=== PATIENT | male | born 1940 | race Caucasian/White ===

== ENCOUNTER → 2016-02-21 | Outpatient (CLI) | payer MEDICARE, MEDICAID ==
[~2016-02-21] MED LIST: ADVAIR 250/501 EA INH; AMIODARONE HCL100 M1 PO; AMIODARONE HCL200 MG PO; AMIODARONE200 MG PO; ASPIR LOW81 MG PO; ASPIRIN81 M1 PO; ATOXIMETIN-B1 CAP PO; B-12-SL1000 MCG SL; BETHANECHOL CHL50 MG PO; CALCIUM 600600 M1 PO; CALCIUM1 CAP PO; CORDARONE200 MG PO; CRESTOR10 M1 PO; CYMBALTA60 MG PO; DILANTIN PO; DILANTIN100 MG PO; FISH OIL1000 MG PO; FLOMAX0.4 MG PO; FOSAMAX PLUS D1 TAB PO; FOSAMAX70 MG PO; ISOSORBIDE MONO30 M1 PO; LIPITOR40 MG PO; LISINOPRIL2.5 MG PO; MEDROL DOSEPAK4 MG PO; METOPROLOL SR25 MG PO; MIRALAX17 GM/DOSE PO; MIRALAX17 GM/PACK PO; MULTIVITAMIN1 TA1 PO; NAMENDA-28 PO; NEXIUM40 MG PO; NITRO-DUR0.4 MG/HR SL; NITROSTAT0.4 MG SL; OMEGA-3 FISH1200 MG PO; PANTOPRAZOLE40 MG PO; PLAVIX75 MG PO; PLETAL50 M1 PO; PRINIVIL2.5 MG PO; PROVENTIL0.09 MG/A1 INH; PROVENTIL0.09 MG/AC IH; RANEXA1000 M1 PO; RANEXA500 MG PO; REGLAN5 MG PO; SEROQUEL25 MG PO; SIMVASTATIN40 MG PO; Synthroid,Lev100 MCG PO; TOPROL XL50 MG PO; VIBRAMYCIN100 MG PO; VICODIN 5/500 505 MG PO; VICODIN ES 7.51 EACH PO; VICODIN ES 7501 TA1 PO; VICODIN ES 7501 TAB PO; VITAMIN B121000 MC2 SL; VITAMIN D1000 IU PO; VOLTAREN 2.5 M2.5 ML OPH; VOLTAREN1% TP; VOLTAREN25 MG PO
== END | disposition home or self-care (01) ==
LOC: LAB 12:24
DX: I69.959 Hemiplegia and hemiparesis following unspecified cerebrovascular disease affecting unspecified side (principal)

== ENCOUNTER → 2016-05-01 | Outpatient (CLI) | payer MEDICARE, MEDICAID | END | disposition home or self-care (01) | LOC: LAB 16:55 | DX: I69.959 Hemiplegia and hemiparesis following unspecified cerebrovascular disease affecting unspecified side (principal) ==

== ENCOUNTER → 2016-07-29 | Outpatient (CLI) | payer MEDICARE, MEDICAID ==
[2016-07-30 07:06] LABS: HEPATITIS B SURFACE AB 006395 Non Reactive (.)
== END | disposition home or self-care (01) ==
LOC: LAB 14:26
PROVIDERS: Internal Medicine
DX: Z11.59 Encounter for screening for other viral diseases (principal); G40.909 Epilepsy, unspecified, not intractable, without status epilepticus; R53.83 Other fatigue

== ENCOUNTER → 2016-11-06 | Outpatient (CLI) | payer MEDICARE, MEDICAID ==
[2016-11-06 10:32] LABS: ALBUMIN 2.7 gm/dl (3.1-4.5); BILIRUBIN, DIRECT 0.1 mg/dL (0.0-0.2); FREE T4 0.91 ng/dl (0.76-1.46); TOTAL PROTEIN 6.3 gm/dL (6.4-8.2)
[2016-11-06 10:36] LABS: VITAMIN D, 25-HYDROXY 53.3 ng/mL (30-100)
[2016-11-06 10:42] LABS: THYROID STIM HORMONE (HS) 0.093 uIU/ml (0.358-4.75)
== END | disposition home or self-care (01) ==
LOC: LAB 08:52
PROVIDERS: Internal Medicine
DX: E78.5 Hyperlipidemia, unspecified (principal); E27.40 Unspecified adrenocortical insufficiency; E03.9 Hypothyroidism, unspecified; D64.9 Anemia, unspecified; E55.9 Vitamin D deficiency, unspecified; R53.1 Weakness; G40.909 Epilepsy, unspecified, not intractable, without status epilepticus

== ENCOUNTER 2016-11-21 05:01 | Emergency (ER) | payer MEDICARE, MEDICAID ==
[~2016-11-21] VITALS: Ht 180.3 cm; Wt 86.2 kg
[2016-11-21] MEDS ORDERED: PERCOCET 5-3251 EACH PO (05:55)
== END 2016-11-21 06:00 | disposition home or self-care (01) ==
LOC: ED 05:01
DX: S20.212A Contusion of left front wall of thorax, initial encounter (principal); N40.0 Benign prostatic hyperplasia without lower urinary tract symptoms; I25.10 Atherosclerotic heart disease of native coronary artery without angina pectoris; N18.3 Chronic kidney disease, stage 3 (moderate); J44.9 Chronic obstructive pulmonary disease, unspecified; E78.00 Pure hypercholesterolemia, unspecified; E78.5 Hyperlipidemia, unspecified; M19.90 Unspecified osteoarthritis, unspecified site; J96.10 Chronic respiratory failure, unspecified whether with hypoxia or hypercapnia; Z99.81 Dependence on supplemental oxygen; Z86.718 Personal history of other venous thrombosis and embolism; Z98.890 Other specified postprocedural states; Z95.5 Presence of coronary angioplasty implant and graft; Z87.891 Personal history of nicotine dependence; Z90.49 Acquired absence of other specified parts of digestive tract; Z98.42 Cataract extraction status, left eye; Z95.1 Presence of aortocoronary bypass graft; Z79.899 Other long term (current) drug therapy; Z79.82 Long term (current) use of aspirin; W19.XXXA Unspecified fall, initial encounter; Y93.89 Activity, other specified; Y92.009 Unspecified place in unspecified non-institutional (private) residence as the place of occurrence of the external cause; Y99.9 Unspecified external cause status

== ENCOUNTER → 2017-02-18 | Outpatient (CLI) | payer OTHER, MEDICAID ==
[~2017-02-18] MED LIST changes: +PERCOCET 5-3251 EACH PO
[2017-02-18 16:45] LABS: ALBUMIN 2.9 gm/dl (3.1-4.5); CREATININE 1.67 mg/dL (0.70-1.30); POTASSIUM 3.7 mmol/L (3.5-5.1); TOTAL PROTEIN 7.2 gm/dL (6.4-8.2)
[2017-02-18 18:41] LABS: FREE T4 0.76 ng/dl (0.76-1.46)
== END | disposition home or self-care (01) ==
LOC: LAB 15:48
DX: I25.119 Atherosclerotic heart disease of native coronary artery with unspecified angina pectoris (principal); J44.9 Chronic obstructive pulmonary disease, unspecified; I10 Essential (primary) hypertension; E03.9 Hypothyroidism, unspecified; E78.00 Pure hypercholesterolemia, unspecified; E55.9 Vitamin D deficiency, unspecified

== ENCOUNTER → 2017-03-14 | Outpatient (CLI) | payer OTHER, MEDICAID ==
[2017-03-14 08:53] LABS: ALBUMIN 2.6 gm/dl (3.1-4.5); CREATININE 1.6 mg/dL (0.70-1.30); FREE T4 0.72 ng/dl (0.76-1.46); POTASSIUM 3.3 mmol/L (3.5-5.1); TOTAL PROTEIN 6.9 gm/dL (6.4-8.2)
[2017-03-14 08:58] LABS: BILIRUBIN, DIRECT 0.1 mg/dL (0.0-0.2); THYROID STIM HORMONE (HS) 1.7 uIU/ml (0.358-4.75)
== END | disposition home or self-care (01) ==
LOC: LAB 08:11
PROVIDERS: Internal Medicine
DX: I69.959 Hemiplegia and hemiparesis following unspecified cerebrovascular disease affecting unspecified side (principal); E03.9 Hypothyroidism, unspecified; E78.5 Hyperlipidemia, unspecified; E27.40 Unspecified adrenocortical insufficiency; N18.9 Chronic kidney disease, unspecified

== ENCOUNTER → 2017-03-24 | Outpatient (CLI) | payer OTHER, MEDICAID | END | disposition home or self-care (01) | LOC: LAB 07:31 | DX: F01.50 Vascular dementia, unspecified severity, without behavioral disturbance, psychotic disturbance, mood disturbance, and anxiety (principal) ==

== ENCOUNTER → 2017-07-08 | Outpatient (CLI) | payer OTHER, MEDICAID ==
[2017-07-08 10:36] LABS: ALKALINE PHOSPHATASE 129 U/L (45-117); BILIRUBIN, DIRECT < 0.1 mg/dL (0.0-0.2); BUN 12 mg/dl (7-24); CHLORIDE 111 mmol/L (98-107); CREATININE 1.97 mg/dL (0.70-1.30); PHENYTOIN (DILANTIN) 11.3 ug/ml (10-20); POTASSIUM 3.5 mmol/L (3.5-5.1); SGOT/AST 18 IU/L (3-35); SGPT/ALT 13 U/L (12-78); SODIUM 140 mmol/L (136-145); TOTAL PROTEIN 6.9 gm/dL (6.4-8.2)
[2017-07-08 10:37] LABS: FREE T4 0.78 ng/dl (0.76-1.46)
[2017-07-08 10:44] LABS: THYROID STIM HORMONE (HS) 0.164 uIU/ml (0.358-4.75)
== END | disposition home or self-care (01) ==
LOC: LAB 09:34
PROVIDERS: Internal Medicine
DX: I12.9 Hypertensive chronic kidney disease with stage 1 through stage 4 chronic kidney disease, or unspecified chronic kidney disease (principal); F01.50 Vascular dementia, unspecified severity, without behavioral disturbance, psychotic disturbance, mood disturbance, and anxiety; E03.9 Hypothyroidism, unspecified; E55.9 Vitamin D deficiency, unspecified; N18.9 Chronic kidney disease, unspecified; E78.5 Hyperlipidemia, unspecified; R56.9 Unspecified convulsions

== ENCOUNTER → 2017-07-29 | Outpatient (CLI) | payer OTHER, MEDICAID ==
[2017-07-29 11:06] LABS: ALBUMIN 3.3 gm/dl (3.1-4.5); CREATININE 1.93 mg/dL (0.70-1.30); POTASSIUM 3.7 mmol/L (3.5-5.1)
[2017-07-29 11:14] LABS: BILIRUBIN, DIRECT 0.1 mg/dL (0.0-0.2); FREE T4 0.82 ng/dl (0.76-1.46); PHENYTOIN (DILANTIN) 12.3 ug/ml (10-20); THYROID STIM HORMONE (HS) 0.437 uIU/ml (0.358-4.75); TOTAL PROTEIN 6.9 gm/dL (6.4-8.2)
== END | disposition home or self-care (01) ==
LOC: LAB 10:10
PROVIDERS: Internal Medicine
DX: I12.9 Hypertensive chronic kidney disease with stage 1 through stage 4 chronic kidney disease, or unspecified chronic kidney disease (principal); N18.9 Chronic kidney disease, unspecified; E03.9 Hypothyroidism, unspecified; E55.9 Vitamin D deficiency, unspecified; R56.9 Unspecified convulsions; E78.5 Hyperlipidemia, unspecified; F01.50 Vascular dementia, unspecified severity, without behavioral disturbance, psychotic disturbance, mood disturbance, and anxiety

== ENCOUNTER → 2017-11-19 | Outpatient (CLI) | payer OTHER, MEDICAID ==
[2017-11-19 10:03] LABS: ALBUMIN 2.9 gm/dl (3.1-4.5); BILIRUBIN, DIRECT 0.1 mg/dL (0.0-0.2)
[2017-11-19 10:12] LABS: FREE T4 0.95 ng/dl (0.76-1.46); THYROID STIM HORMONE (HS) 0.833 uIU/ml (0.358-4.75); TOTAL PROTEIN 6.5 gm/dL (6.4-8.2)
== END | disposition home or self-care (01) ==
LOC: LAB 09:07
PROVIDERS: Internal Medicine
DX: E55.9 Vitamin D deficiency, unspecified (principal); E78.5 Hyperlipidemia, unspecified; E03.9 Hypothyroidism, unspecified; E27.40 Unspecified adrenocortical insufficiency

== ENCOUNTER → 2017-12-15 | Outpatient (CLI) | payer OTHER, MEDICAID | END | disposition home or self-care (01) | LOC: LAB 09:29 | PROVIDERS: Psychiatry & Neurology Neurology | DX: R56.9 Unspecified convulsions (principal) ==

== ENCOUNTER → 2018-03-24 | Outpatient (CLI) | payer OTHER, MEDICAID ==
[2018-03-24 10:15] LABS: ALBUMIN 2.7 gm/dl (3.1-4.5); BILIRUBIN, DIRECT 0.1 mg/dL (0.0-0.2)
[2018-03-24 10:26] LABS: FREE T4 0.77 ng/dl (0.76-1.46); THYROID STIM HORMONE (HS) 1.96 uIU/ml (0.358-4.75); TOTAL PROTEIN 6.2 gm/dL (6.4-8.2)
== END | disposition home or self-care (01) ==
LOC: LAB 09:26
PROVIDERS: Internal Medicine
DX: E55.9 Vitamin D deficiency, unspecified (principal); E03.9 Hypothyroidism, unspecified; E78.5 Hyperlipidemia, unspecified; R56.9 Unspecified convulsions